=== PATIENT | female | born 1990 | race Caucasian/White ===

== ENCOUNTER 2016-10-19 00:44 | Emergency (ER) | payer OTHER ==
[2016-10-19] MEDS ORDERED: TYLENOL ONE (01:09)
[2016-10-19] MEDS ORDERED: TYLENOL PO ONE (01:17)
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
[2016-10-19 05:56] VITALS: BP 107/68
== END 2016-10-19 05:56 | disposition home or self-care (01) ==
LOC: ED 00:44
DX: M25.512 Pain in left shoulder (principal); M54.9 Dorsalgia, unspecified; Z53.21 Procedure and treatment not carried out due to patient leaving prior to being seen by health care provider
CPT/HCPCS: 99282